=== PATIENT | female | born 1965 | race Two or more races ===

== ENCOUNTER 2017-06-23 13:45 | Emergency (ER) | payer MEDICARE, MEDICAID | END 2017-06-23 15:37 | disposition home or self-care (01) | LOC: ER 13:45 | DX: R76.11 Nonspecific reaction to tuberculin skin test without active tuberculosis (principal); I51.7 Cardiomegaly; R91.8 Other nonspecific abnormal finding of lung field; Z99.2 Dependence on renal dialysis | CPT/HCPCS: 71020; 99284 ==